=== PATIENT | male | born 1960 | race Caucasian/White ===

== ENCOUNTER 2017-05-27 23:29 | Inpatient (IN) ==
[2017-05-27] MEDS ORDERED: Aspirin 81 MG TAB.CHEW PO ONE (23:50)
[2017-05-27] MEDS ORDERED: Nitroglycerin 0.4 MG TAB.SUBL SL PRN (23:50)
--- NOTE | 2017-05-27 23:52 | Emergency Department Note ---
Disposition Clinical Impression: Tobacco abuse, NSTEMI (non-ST elevated myocardial infarction) Disposition: Admitted As Inpatient Condition: Fair Time of Disposition: 02:36 Chest Pain HPI - General Chief Complaint: ED Chest Pain Stated Complaint: Chest Pain into back Time Seen by Provider: 05/27/17 23:44 Source: patient Mode of arrival: ambulatory Limitations: no limitations Vital Signs Reviewed: Yes Nursing Notes Reviewed: Yes - History of Present Illness HPI Narrative: 56-year-old male with a history of ACS status post stents in 2006 on aspirin and Plavix presents for evaluation of chest pain. Patient notes intermittent chest pain over the past couple days. Initial presentation was on Friday where the patient had tightness in his chest that lasts approximately 1 hour. Patient 's pain was nonexertional. Since then the patient has had intermittent symptoms with more prolonged symptoms today. Noted to be a tightness sensation similar to his prior presentation in 2006. Pain is retrosternal with radiation to the bilateral shoulders and back. Pain is not related to exertion. Noted to be intermittent over the past 2 days. No aggravating or alleviating symptoms. Patient denies any diaphoresis or vomiting but does note "hot flashes ". Denies any dyspnea. No abdominal pain. Severity scale (1-10): 5 - Related Data Allergies Allergy/AdvReac Type Severity Reaction Status Date / Time No Known Allergies Allergy Verified 05/27/17 23:34 All systems ED: reviewed and negative except as stated. Constitutional: Reports: as per HPI. Denies: fever Eyes: Reports: as per HPI ENT ED: Reports: as per HPI Cardiovascular: Reports: as per HPI, chest pain Respiratory: Reports: as per HPI. Denies: cough, dyspnea, sputum production Gastrointestinal: Reports: as per HPI. Denies: abdominal pain, nausea, vomiting Genitourinary: Reports: as per HPI Musculoskeletal: Reports: as per HPI Integumentary: Reports: as per HPI Neurological: Reports: as per HPI Psychiatric: Reports: as per HPI Endocrine: Reports: as per HPI Hematological/Lymphatic: Reports: as per HPI Allergic/Immunologic: Reports: as per HPI Chest Pain PMH - Past Medical History Medical history: Reports: COPD, myocardial infarction - Social History Smoking Status: Current every day smoker Alcohol use: Reports: none Drug use: Reports: none Physical Exam - General Limitations: no limitations General appearance: alert, in no apparent distress - Head Head exam: atraumatic, normocephalic, normal inspection - Eye Eye exam: Present: normal appearance, PERRL, EOMI - ENT ENT exam: normal exam, normal oropharynx, mucous membranes moist - Neck Neck exam: Present: normal inspection, trachea midline - Chest Chest inspection: Present: normal inspection, symmetric chest wall rise - Respiratory Respiratory exam: Present: prolonged expiratory phase. Absent: respiratory distress - Cardiovascular Cardiovascular exam: Present: regular rate, normal rhythm. Absent: systolic murmur - Abdominal Exam Abdominal exam: Present: soft, Non-Tender - Extremities Exam Extremities exam: Present: normal inspection. Absent: pedal edema - Back Exam Back exam: Present: normal inspection. Absent: tenderness - Neurological Exam Neurological exam: Present: alert, oriented X3, CN II-XII intact - Skin Skin exam: Present: warm, dry, intact, normal color Course Course Narrative: Patient seen and examined upon arrival. Patient appears uncomfortable but does not appear in any acute distress. Patient does have EKG changes. Patient will get a repeat EKG as well as troponin basic labs and chest x-ray. Patient be treated symptomatically with aspirin as well as nitroglycerin. Disposition admission. - Reevaluation(s) Reevaluation #1: Repeat EKG showed sinus bradycardia with Q waves in lead 3. No ST elevation. Minimal ST depression in the anterior leads with flattening of T waves in V5 and V6 Time: 00:46 Reevaluation #2: Patient seen and examined. States the pain has improved. Rated 2 out of 10. Repeat EKG shows sinus bradycardia with minimal ST depression in V2 V3 isolated ST elevation of half a millimeter in lead 3. No other acute changes. EKGs were transferred to the frothing machine operator for interpretation. Time: 01:54 Reevaluation #3: Patient seen and examined. Patient continues to report no pain. Patient was instructed to let us know if his pain worsens. Patient was made aware that he does have signs and symptoms consistent of a heart attack. Time: 03:19 - Consultations Consultation #1: Spoke with Dr. Perea, who recommends maximal medical therapy with nitro drip, loading with antiplatelet agents. If the patient continues to have significant chest pain the patient would likely need a cardiac catheter. Time: 01:00 Vital Signs Temperature 98.6 F 05/27/17 23:30 Pulse Rate 59 05/27/17 23:30 Respiratory Rate 20 05/27/17 23:30 Blood Pressure 144/83 05/27/17 23:30 O2 Sat by Pulse Oximetry 100 05/27/17 23:30 Temperature 98.6 F 05/28/17 03:58 Pulse Rate 56 05/28/17 03:58 Respiratory Rate 16 05/28/17 03:58 Blood Pressure 126/87 05/28/17 03:30 O2 Sat by Pulse Oximetry 96 05/28/17 03:58 Oxygen Delivery Oxygen Delivery Room Air Chest Pain - MDM Narrative Medical decision making narrative: 56-year-old gentleman with a history of ACS present for evaluation of chest pain. Patient's pain initially started on Friday. Had an intense episode at that time. Since then patient had intermittent episodes and has not been more prolonged today. Pain does radiate to shoulder blades. Patient did have EKG changes. Serial EKG changes has not resolved into a STEMI. Patient did have an elevated troponin. Discussed with interventional cardiology who reviewed the EKGs as well. Patient was started on a nitro drip as well as loaded with Plavix. Patient was also started on a heparin drip. Patient's pain was controlled in the emergency department. Patient was admitted to hospitals for further care and management. If the patient's symptoms worsen is instructed contact cardiology for likely cath intervention. - Lab Data Lab results reviewed: Yes I reviewed the patient's lab results. Result diagrams: 05/28/17 00:00 05/28/17 00:00 Lab Results 05/28/17 05/28/17 05/28/17 Range/Units 00:00 00:00 00:00 WBC 12.1 H (4.3-11.1) K/mcL RBC 5.10 (4.19-5.50) M/mcL Hgb 15.5 (12.9-16.9) g/dL Hct 46.7 (37.5-50.1) % MCV 91.6 (83.0-100.0) fL MCH 30.4 (28.0-33.3) pg MCHC 33.2 (31.6-35.5) g/dL RDW 12.6 (11.5-14.5) % Plt Count 219 (140-400) K/mcL MPV 9.6 (9.4-12.4) fL Immature Gran % 0.4 (0-4) % Seg Neutrophils % 69.1 % Lymphocytes % 22.2 % Monocytes % 6.8 % Eosinophils % 1.1 % Basophils % 0.4 % Neutrophils # 8.4 (1.6-8.9) K/mcL Lymphocytes # 2.7 (0.6-4.6) K/mcL Monocytes # 0.8 (0.0-1.3) K/mcL Eosinophils # 0.1 (0.0-0.6) K/mcL Basophils # 0.1 (0.0-0.2) K/mcL PT (9.4-12.1) Seconds INR APTT (26.0-36.0) Seconds Sodium 141 (136-145) mEq/L Potassium 3.5 (3.5-5.1) mEq/L Chloride 107 (98-107) mEq/L Carbon Dioxide 31 H (23-29) mEq/L BUN 6 (6-20) mg/dL Creatinine 0.82 (0.70-1.30) mg/dL Est GFR ( Amer) > 60 (> 60) Est GFR (Non-Af Amer) > 60 (> 60) BUN/Creatinine Ratio 7 (6-26) Glucose 103 (70-105) mg/dL Calculated Osmolality 290 (280-300) Calcium 9.4 (8.6-10.3) mg/dL Total Bilirubin 0.5 (0.3-1.0) mg/dL Direct Bilirubin 0.1 (0.0-0.2) mg/dL Indirect Bilirubin 0.4 (0.0-1.2) mg/dL AST 107 H (13-39) Units/L ALT 27 (7-52) Units/L Alkaline Phosphatase 82 (34-104) Units/L Troponin I 9.87 H* (< 0.04) ng/mL B-Natriuretic Peptide (Less than 100) pg/mL Serum Total Protein 6.5 (6.4-8.9) g/dL Albumin 4.3 (3.5-5.7) g/dL Globulin 2.2 L (2.4-3.5) g/dL Albumin/Globulin Ratio 2.0 (1.1-2.2) Lipase 21 (11-82) Units/L 05/28/17 05/28/17 Range/Units 00:00 00:00 WBC (4.3-11.1) K/mcL RBC (4.19-5.50) M/mcL Hgb (12.9-16.9) g/dL Hct (37.5-50.1) % MCV (83.0-100.0) fL MCH (28.0-33.3) pg MCHC (31.6-35.5) g/dL RDW (11.5-14.5) % Plt Count (140-400) K/mcL MPV (9.4-12.4) fL Immature Gran % (0-4) % Seg Neutrophils % % Lymphocytes % % Monocytes % % Eosinophils % % Basophils % % Neutrophils # (1.6-8.9) K/mcL Lymphocytes # (0.6-4.6) K/mcL Monocytes # (0.0-1.3) K/mcL Eosinophils # (0.0-0.6) K/mcL Basophils # (0.0-0.2) K/mcL PT 11.0 (9.4-12.1) Seconds INR 1.0 APTT 29.0 (26.0-36.0) Seconds Sodium (136-145) mEq/L Potassium (3.5-5.1) mEq/L Chloride (98-107) mEq/L Carbon Dioxide (23-29) mEq/L BUN (6-20) mg/dL Creatinine (0.70-1.30) mg/dL Est GFR ( Amer) (> 60) Est GFR (Non-Af Amer) (> 60) BUN/Creatinine Ratio (6-26) Glucose (70-105) mg/dL Calculated Osmolality (280-300) Calcium (8.6-10.3) mg/dL Total Bilirubin (0.3-1.0) mg/dL Direct Bilirubin (0.0-0.2) mg/dL Indirect Bilirubin (0.0-1.2) mg/dL AST (13-39) Units/L ALT (7-52) Units/L Alkaline Phosphatase (34-104) Units/L Troponin I (< 0.04) ng/mL B-Natriuretic Peptide 126 H (Less than 100) pg/mL Serum Total Protein (6.4-8.9) g/dL Albumin (3.5-5.7) g/dL Globulin (2.4-3.5) g/dL Albumin/Globulin Ratio (1.1-2.2) Lipase (11-82) Units/L - Radiology Data Radiology results reviewed: Yes I reviewed the patient's radiology results. Chest X-Ray 05/27/17 23:35 IMPRESSION: No acute abnormality. D/ / Anselmo Jay / Anselmo Jay Interpreting Provider: Anselmo Jay - EKG Data EKG attestation: Yes I reviewed and interpreted this EKG. EKG shows normal: sinus rhythm Rate: normal Rhythm: NSR Cummings/QRS: left axis deviation ST segment elevation in: III ST segment depression in: v2, v4 Q waves: aVR T wave inversions noted in: aVR, v5 (flattening), v6 (flattening) When compared to previous EKG there are: previous EKG unavailable Interpretation: nonspecific ST-T wave changes Heart Score - Score History: Highly Suspicious EKG: Significant ST-Depression Age: 45-65 Risk Factors: Equal/Greater than 3 risk factor or history of atherosclerotic disease Troponin: Greater than 3x normal limit HEART Score Total: 9 Critical Care Time Critical Care Time: Yes Total Critical Care Time: 60 Attestation: Critical care performed: Time is exclusive of separately billable procedures. Time includes: direct patient care, patient reassessment, coordination of patient care, interpretation of data (laboratory data, radiology data, and respiratory data), review of patient's medical records, medical consultation and documentation of patient care. Procedures included in critical care time: Procedures excluded from critical care time: S.B.ASarbjit - S.B.ASarbjit Situation: Demographics Background: Presenting Complaint Assessment: Vital Signs, Course and respsone to treatment, Patient/Family Expectation Recommendation: Barrier(s) to disposition, Recommendation based on pending studies, treatments, or consults S.B.A.RObdulia Report Given to: Dr. Lopez Blackburn Repor Time: 02:36 Attestation Statement - Attestation Attestation: I, Aravind Guaman MD, personally evaluated this patient and discussed their management with the resident physician. I reviewed the resident's note and agree with the documented findings, medical decision making, and plan of care. 56-year-old male presents to the emergency department with a complaint of chest pain. Patient states the pain started Friday with an episode of severe pain in his back between his shoulder blades and in the substernal area of his chest. The pain lasted about an hour. He did take some Zantac and the pain seemed to get better and finally resolved. He had another episode of similar pain but not as severe on Friday evening. This again resolved spontaneously and he states that all day Friday he just did not feel well and felt weak and fatigued that did not actually have any pain in his chest or back. Today on Friday morning when he awoke he states the pain returned. His only been mild but has persisted all day and has not gone away. He describes it as a tightness in the substernal area with discomfort in his upper back. No radiation down the arms. No shortness of breath or diaphoresis. Some mild nausea. No vomiting. He has had decreased appetite. No cough or fever. Patient does have a history of coronary stents in the past. On examination patient is a well-developed well-nourished well-appearing male in no acute distress. He is alert and oriented 3. There is no cyanosis or diaphoresis. Chest is nontender to palpation. Breath sounds are clear and equal bilaterally. Heart regular rate and rhythm. Abdomen soft and nontender with normal bowel sounds. EKG shows some mild inferior ST elevations but does not meet STEMI criteria. He also has some mild anterior ST segment depressions and lateral T-wave flattening. A repeat EKG later shows the same changes but the actually appear slightly improved. Chest x-ray negative. Labs reviewed. Troponin was 9.87. Dr. Lopez discussed the patient with the frothing machine operator, Dr. Cami Perea, and she reviewed the EKGs. She recommended a heparin drip and nitroglycerin and medical management for a non-STEMI at this point. Patient was placed on heparin infusion and nitroglycerin infusion. He received aspirin and Plavix. After treatment he stated the pain was mostly gone but was still just there. The hospitalist, Dr. Marroquin, was consulted and accepted admission of the patient.
[2017-05-28 00:15] LABS: Basophils # 0.1 K/mcL (0.0-0.2); Basophils % 0.4 %; Eosinophils # 0.1 K/mcL (0.0-0.6); Eosinophils % 1.1 %; Hematocrit 46.7 % (37.5-50.1); Hemoglobin 15.5 g/dL (12.9-16.9); Immature Granulocytes % 0.4 % (0-4); Lymphocytes # 2.7 K/mcL (0.6-4.6); Lymphocytes % 22.2 %; Mean Corpuscular HGB Conc 33.2 g/dL (31.6-35.5); Mean Corpuscular Hemoglobin 30.4 pg (28.0-33.3); Mean Corpuscular Volume 91.6 fL (83.0-100.0); Mean Platelet Volume 9.6 fL (9.4-12.4); Monocytes # 0.8 K/mcL (0.0-1.3); Monocytes % 6.8 %; Neutrophils # 8.4 K/mcL (1.6-8.9); Platelet Count 219 K/mcL (140-400); Red Cell Distribution Width 12.6 % (11.5-14.5); Segmented Neutrophils % 69.1 %
[2017-05-28 00:35] LABS: Alanine Aminotransferase 27 Units/L (7-52); Albumin 4.3 g/dL (3.5-5.7); Alkaline Phosphatase 82 Units/L (34-104); Aspartate Amino Transferase 107 Units/L (13-39); BUN/Creatinine Ratio 7 (6-26); Bilirubin,Direct 0.1 mg/dL (0.0-0.2); Bilirubin,Indirect 0.4 mg/dL (0.0-1.2); Bilirubin,Total 0.5 mg/dL (0.3-1.0); Blood Urea Nitrogen 6 mg/dL (6-20); Calcium 9.4 mg/dL (8.6-10.3); Carbon Dioxide 31 mEq/L (23-29); Chloride 107 mEq/L (98-107); Globulin 2.2 g/dL (2.4-3.5); Glucose 103 mg/dL (70-105); Lipase 21 Units/L (11-82); Osmolality,Calculated 290 (280-300); Potassium 3.5 mEq/L (3.5-5.1); Sodium 141 mEq/L (136-145); Total Protein 6.5 g/dL (6.4-8.9); eGFR For African Americans > 60 (> 60); eGFR For Non-African Americans > 60 (> 60)
[2017-05-28] MEDS ORDERED: *HR* Heparin 5,000 UNIT/ML VIAL IVP ONE (00:41)
[2017-05-28] MEDS ORDERED: *HR* Heparin 5,000 UNIT/ML VIAL IVP PRN (00:41)
[2017-05-28] MEDS ORDERED: Heparin 25,000 UNIT/500 ML D5W 25,000 UNIT/500 ML BAG IVC SCH (00:45)
[2017-05-28] MEDS ORDERED: *HR* Morphine 2 MG/ML SYRINGE IVP ONE (00:45)
[2017-05-28] MEDS ORDERED: Ondansetron 4 MG/2 ML VIAL IVP ONE (00:45)
[2017-05-28] MEDS ORDERED: 0.9 % Sodium Chloride 1,000 ML IVC ONE (00:59)
[2017-05-28] MEDS: Nitroglycerin 25 MG/250 ML INFUS..BTL IVC SCH (01:26)
[2017-05-28] MEDS ORDERED: 0.9 % Sodium Chloride 1,000 ML ONE ×3 (03:48→10:05)
[2017-05-28] MEDS ORDERED: Acetaminophen 325 MG TABLET PO PRN (05:46)
[2017-05-28] MEDS ORDERED: Naloxone 0.4 MG/ML INJ IVP PRN (05:46)
[2017-05-28] MEDS ORDERED: Ondansetron 4 MG/2 ML VIAL IVP PRN (05:46)
[2017-05-28] MEDS ORDERED: *HR* Morphine 2 MG/ML SYRINGE IVP PRN ×2 (05:49)
[2017-05-28] MEDS ORDERED: Ipratropium/Albuterol Neb 3 ML IH PRN (05:49)
--- NOTE | 2017-05-28 05:58 | Internal Med History&Physical ---
Date of Encounter: 05/28/17 Time of Encounter: 05:54 Assessment and Plan (1) NSTEMI (non-ST elevated myocardial infarction) Current visit: Yes Status: Acute Non-STEMI Continue heparin drip, no beta blockers due to bradycardia and hypotension, may discontinue nitroglycerin in if blood pressure drops further Continue aspirin, cardiology consult, Lipitor, check lipid dry transfer worker with telemetry, follow troponins Cardiology consult Nothing by mouth for possible cardiac catheterization Limited echocardiogram Protonix IV for GI prophylaxis and heparin drip for DVT prophylaxis. Patient will be admitted as inpatient, expected to stay [facility] midnights. Full code. Time spent on this admission 40 minutes. (2) Leukocytosis Current visit: Yes Status: Acute Qualifiers: Leukocytosis type: unspecified Qualified Code(s): D72.829 - Elevated white blood cell count, unspecified (3) Hypotension Current visit: Yes Status: Acute due to nitroglycerin Qualifiers: Hypotension type: other hypotension type Qualified Code(s): I95.89 - Other hypotension (4) Tobacco abuse Current visit: Yes Status: Acute Smoking cessation counseling, nicotine patch (5) Sinus bradycardia Current visit: Yes Status: Acute Internal Medicine - H&P: HPI Chief complaint: Chest pain Admitted From: Emergency Dept History of present illness: Mr. Cloud is a 56 year old male with past medical history of CAD status post stents, COPD not oxygen dependent, tobacco use, who came to the emergency room complaining of 2 days of intermittent chest pain that started Friday. Earlier yesterday he started complaining of chest tightness midsternal 9 out of 10 in intensity radiating to the back and shoulders at 9 AM. EKG showed sinus bradycardia with Q waves and ST elevation only in lead 3, ST depressions in the anterior leads with flattening of T waves in the lateral leads. The patient is still complaining of chest tightness 3 out of 10 in intensity even though he is on nitroglycerin drip. Heparin drip was started after consulting with cardiology. White blood cell count is 12.1 troponin is 9.87 BNP is 126. Patient has been experiencing hot flashes. Heart rate is 49 blood pressure was 87/54. Denies any other complaints. Takes aspirin but no Plavix Past Med Surg Social Fam HX - Past Medical History Medical history: COPD (Not oxygen dependent, emphysema), coronary artery disease (With history of stent), myocardial infarction, other (Tobacco use, left upper lobe calcified granuloma) - Past Surgical History Surgical History: no surgical history (Other than cardiac catheterization) - Social History Smoking Status: Current every day smoker Packs per day: One pack per day Smokeless Tobacco Status: No Alcohol use: none Drug use: none - Additional Family History Additional family history: Father and mother with a myocardial infarction in their 60s, father with diabetes Internal Medicine - H&P: Meds 3 Allergy/AdvReac Type Severity Reaction Status Date / Time No Known Allergies Allergy Verified 05/27/17 23:34 All Systems PM: A 10-system review of systems was performed and is negative for pertinent findings except as documented above in the HPI. Review of systems: Chest tightness, mild shortness of breath. Other systems out of the 10 reviewed were negative - Constitutional Vitals: Temp Pulse Resp BP Pulse Ox 98.6 F 56 16 126/87 96 05/28/17 03:58 05/28/17 03:58 05/28/17 03:58 05/28/17 03:30 05/28/17 03:58 General appearance: Present: A&O X 3 - Head Head exam: Present: atraumatic, normocephalic - Eye Eye exam: Present: PERRL, conjuntiva pink, sclera anicteric Pupils: Present: PERRL - Neck Neck exam general surgery: Present: supple, trachea midline. Absent: lymphadenopathy - Respiratory Respiratory exam: Present: CTAB. Absent: accessory muscle use, rales, rhonchi, wheezes - Cardiovascular Cardiovascular exam: Present: RRR, +S1, +S2. Absent: diastolic murmur, gallop, rubs, systolic murmur - GI/Abdominal GI/Abdominal exam: Present: normal bowel sounds, soft, no peritoneal signs. Absent: distended, tenderness - Extremities Exam Extremities exam: Present: warm, radial pulses palpable and symmetrical. Absent : calf tenderness, cyanotic, pedal edema - Neurological Exam Neurological exam: Present: CN II-XII intact, oriented X3, no focal deficits. Absent: pronater drift, facial droop, speech deficit - Skin Skin exam: Present: dry, intact Internal Med - H&P Results - Labs CBC & Chem 7: 05/28/17 00:00 05/28/17 00:00
[2017-05-28] MEDS ORDERED: 0.9 % Sodium Chloride 1,000 ML IVC SCH (06:00)
[2017-05-28 06:42] LABS: Chol/HDL Ratio 3.4 (0-4.9)
[2017-05-28] MEDS: Pantoprazole 40 MG VIAL IVP SCH (07:54)
[2017-05-28] MEDS: Nicotine 21 MG PATCH.TD24 TD SCH (07:55)
--- NOTE | 2017-05-28 08:27 | Cardiology Consult Note ---
Date of Encounter: 05/28/17 Time of Encounter: 07:50 Assessment and Plan (1) NSTEMI (non-ST elevated myocardial infarction) Current Visit: Yes Status: Acute Late presenting AMI--symptoms since Friday evening. Peak troponin thus far 16.35. Reports CP 2-3/10. Inferior ST/T wave changes on ECG. ASA/plavix load in ED. Started on IV heparin and NTG gtt. Continue statin. No BB due to bradycardia. Recommend LHC with possible PCI; alternatives, risks, and benefits discussed. He is agreeable to proceed. Reviewed patient/ECG with Dr. Smith. Check echocardiogram. Cardiac rehab consult. Further recommendations to follow. (2) Sinus bradycardia Current Visit: Yes Status: Acute HR 40-45 SB. No betablocker. (3) Tobacco abuse Current Visit: Yes Status: Acute Smoking cessation counseling. Discussion w patient/family: The assessment and plan as outlined above was discussed with the patient and/or family members who expressed understanding and agreement. All questions were answered. Thank you for involving us in the care of your patient. Please call with any questions. The patient was discussed and reviewed with Dr. Tolentino; changes to be made accordingly. History of Present Illness Consult date: 05/28/17 Requesting physician: Dale Lopez Consult reason: NSTEMI Chief complaint: Chest pain History of present illness: Mr. Cloud is a 56 year old male with PMHx significant for CAD (PCI-2006), HTN, STANISLAV, tobacco use, and COPD who presented to the ED with complaints of back pain with raditation to center of chest since Friday evening. Patient reports symptoms have waxed and waned for the past several days, typically lasting an hour. Discomfort described as "burning/indigestion." Patient thought was related to GERD. Reports chest discomfort recurred Friday morning and did not subside which prompted ED evaluation last night. Discomfort is similar to prior [place] presentation in 2006. Associated symptoms include fatigue for the past several months. Prior CV testing: February 2017 TTE: EF 60-65%, HR 45-50 SB, normal wall motion. Past Med Surg Social Fam HX - Past Medical History Attestation: Yes The following information was validated with the patient. Source: patient Medical history: COPD (Not oxygen dependent, emphysema), coronary artery disease (With history of stent), myocardial infarction, other (Tobacco use, left upper lobe calcified granuloma) - Past Surgical History Surgical History: angioplasty/stent - Social History Smoking Status: Current every day smoker Packs per day: One pack per day Smokeless Tobacco Status: No Alcohol use: none Drug use: none Medications and Allergies Aspirin Enteric Coated [Aspirin EC] 81 mg PO DAILY 05/28/17 [History] Cyanocobalamin (Vitamin B-12) [Vitamin B12] 1,000 mcg PO DAILY 05/28/17 [History ] 3 Allergy/AdvReac Type Severity Reaction Status Date / Time No Known Allergies Allergy Verified 05/27/17 23:34 All Systems Review: A 10-system review of systems was performed and is negative for pertinent findings except as documented above in the HPI. - Cardiovascular Cardiovascular: as per HPI Physical Examination Vital Signs, Last 4 Hours Temp Pulse Resp BP Pulse Ox 05/28/17 07:15 98.3 F 47 16 92/46 95 General: Conversant, Other (tearful) HEENT: Atraumatic, Normocephaly Cardiac: Normal S1 and S2, Other (bradycardiac) Neuro: Alert and responsive Abdomen: Soft Skin: No rashes noted on visualized skin Musculoskeletal: No Chest Wall Tenderness Extremities: No Edema, Normal Pulses Results 05/28/17 00:00 05/28/17 00:00 Lab Results 05/28/17 06:20 Troponin I 16.35 H* Active Medications Acetaminophen (Tylenol) 650 mg PO Q6HR PRN PRN Reason: Mild Pain (1-3) Stop: 11/27/17 05:47 Albuterol/Ipratropium (Duoneb) 3 ml IH [id number] PRN; Protocol PRN Reason: Shortness Of Breath/Wheezing Stop: 11/27/17 05:50 Aspirin (Aspirin Ec) 325 mg PO DAILY JERRY Stop: 11/27/17 09:01 Last Admin: 05/28/17 07:54 Dose: 325 mg Atorvastatin Calcium (Lipitor) 80 mg PO DAILY JERRY Stop: 11/27/17 06:01 Heparin Sodium (Porcine) (Heparin) 4,000 unit IVP Q6HR PRN PRN Reason: SEE COMMENTS Stop: 11/27/17 00:42 Heparin Sodium/Dextrose (Heparin 25,000 Unit/500 Ml D5w) 25,000 unit in 500 mls @ 20.04 mls/hr IVC .Q24H JERRY; 9.4 UNIT/KG/HR PRN Reason: Protocol Stop: 11/27/17 00:46 Last Admin: 05/28/17 01:07 Dose: 9.4 unit/kg/hr, 20.04 mls/hr Nitroglycerin (Nitroglycerin Premix 25 Mg/250 Ml) 25 mg in 250 mls @ 3 mls/hr IVC .Q24H JERRY; 5 MCG/MIN PRN Reason: Protocol Stop: 11/27/17 01:01 Last Admin: 05/28/17 01:26 Dose: 5 mcg/min, 3 mls/hr Sodium Chloride (0.9 % Sodium Chloride) 1,000 mls @ 100 mls/hr IVC .Q10H JERRY Stop: 05/29/17 01:59 Last Admin: 05/28/17 07:55 Dose: 100 mls/hr Morphine Sulfate (Morphine Sulfate) 2 mg IVP Q3H PRN PRN Reason: moderate pain Stop: 11/27/17 05:50 Morphine Sulfate (Morphine Sulfate) 4 mg IVP Q3H PRN PRN Reason: severe pain Stop: 11/27/17 05:50 Naloxone HCl (Narcan) 0.4 mg IVP Q2MIN PRN PRN Reason: Opioid Reversal Stop: 11/27/17 05:47 Nicotine (Nicoderm) 21 mg TD DAILY JERRY PRN Reason: Protocol Stop: 11/27/17 09:01 Last Admin: 05/28/17 07:55 Dose: Not Given Nitroglycerin (Nitroglycerin) 0.4 mg SL Q5MIN PRN PRN Reason: Chest Pain Stop: 11/26/17 23:51 Last Admin: 05/28/17 00:14 Dose: 0.4 mg Ondansetron HCl (Zofran) 4 mg IVP Q8HR PRN PRN Reason: Nausea And Vomiting Stop: 11/27/17 05:47 Pantoprazole Sodium (Protonix) 40 mg IVP 0630 JERRY Stop: 11/27/17 06:31 Last Admin: 05/28/17 07:54 Dose: 40 mg - Imaging and Cardiology Echo: pending, report reviewed Cardiac cath: pending - EKG Interpretation EKG results cardiology: personally reviewed Consult Discharge Plan - Plan Referrals: Gabriella Carrero DO [Primary Care Provider] - Trang Osborne, CUPOLA TENDER [Family Provider] -
[2017-05-28] MEDS ORDERED: Heparin 1,000 UNITS/500 mL 500 ML ONE ×2 (08:53→10:06)
--- NOTE | 2017-05-28 08:54 | Pre-Sedation Evaluation ---
Pre-sedation evaluation - Pre-sedation checklist Date of procedure: 05/28/17 Recent Vitals: Last Vital Signs Temp 98.3 F 05/28/17 07:15 Pulse 47 05/28/17 07:15 Resp 16 05/28/17 07:15 BP 92/46 05/28/17 07:15 Pulse Ox 95 05/28/17 07:15 H&P (including ROS) documented in medical record: Yes Previous reaction to sedatives/anesthetics: No Dietary Status: No solid food in preceding 4 hrs and no liquid in preceding 2 hrs Airway Assessment: Patient can open mouth completely, TMJ function normal Dentition: No loose teeth or bridges Possible difficult airway: No ASA Classification *see protocol: CLASS III-Severe systemic disease Plan of Care: Pt appropriate candidate for procedure/moderate/conscious sedation , Risks/benefits of procedure/sedation discussed w/ patient/family, If not NPO; Risk of intake outweiged by necessity to perform procedure
[2017-05-28] MEDS ORDERED: *HR* Midazolam HCl 2 MG/2 ML VIAL ONE ×2 (08:55→09:01)
[2017-05-28] MEDS ORDERED: Aspirin Enteric Coated 325 MG Tablet PO SCH (09:00)
[2017-05-28] MEDS ORDERED: *HR* Heparin 10,000 UNIT/10 ML VIAL ONE (10:05)
[2017-05-28] MEDS ORDERED: Nitroglycerin 1,000 MCG/10 ML VIAL IV ONE (10:05)
[2017-05-28] MEDS ORDERED: *HR* Atropine Sulfate 1 MG/10 ML SYRINGE ONE (10:05)
[2017-05-28] MEDS: Aspirin Enteric Coated 81 MG Tablet PO SCH (13:25)
[2017-05-28] MEDS: 0.9 % Sodium Chloride 1,000 ML IVC SCH (13:25)
--- NOTE | 2017-05-28 13:25 | Invasive Diagnostic Lab Proc ---
Name: Anselmo Cloud Date of Study: 05/28/2017 Date: 1960 Ht: 72.0in Medical Record#: [id number] Age: 56 Wt: 235.89lb Gender: Male BSA: 2.29 Order #: [id number] BMI: 31.95 Physicians Procedure Physician: Wilton Smith DO Referring MD: Referring MD: Staff Name Position [facility] 08:51 AM Arcenio Cheri RT (R) 08:51 AM 08:51 AM June Bourgeois RT Scrub 08:52 AM Cate Chaparro RN Nurse 09:52 AM Indications Indication Non-Stemi Procedures Performed Procedure L HRT ARTERY/VENTRICLE ANGIO PRQ CARD VICTORINO STENT W/ANGIO 1 VSL CARDIOPULMONARY RESUSCITATION Pre-Procedure Checklist Informed consent is complete signed and on chart. H&P is on chart. ID band is on and ID verified with patient. Patient NPO for procedure The procedure was described for the patient and questions were answered. Blood Pressure: 92/46 ECG is on chart. Rhythm: Sinus Bradycardia Plan of Care Patient will tolerate the procedure without complications. Adequate level of comfort will be maintained. Hemodynamics will remain stable Patient will recover from procedure without complications. Respiratory function will be maintained. Cardiac rhythm will remain stable. Patient temperature will be maintained. Patient and/or family have verbalized understanding of the procedure. Patient Education Chief Complaint/Reason for Test: Cardiac Cath Developmental Category: Adult (18-64 years) Developmentally Appropriate for Age: Yes Learning Barriers: None Education Needs: Procedure Education Method: Verbal Information Taught: Cardiac Cath Educational Evaluation: Able to repeat information Intravenous Access Time IV Size Location DC'd Fluid/Drip Rate Units RN 08:28 AM 18g 1 14" Patent On Arrival Rt Antecubital 08:29 AM 18g 1 14" Patent On Arrival Rt Arm Allergies No Known Allergies Vital Signs Time BP (mmHg) HR (bpm) O2 Sat. RR (bpm) LOC 08:47 AM / % 5 = Fully awake and oriented or at pre-proc level 08:52 AM / % 5 = Fully awake and oriented or at pre-proc level 08:52 AM / % 4 = Oriented but drowsy 09:07 AM / % 4 = Oriented but drowsy 09:23 AM / % 4 = Oriented but drowsy 08:52 AM 118 / 76 55 98 % 32 08:56 AM 123 / 80 73 99 % 19 09:01 AM 114 / 65 50 98 % 16 09:06 AM 106 / 59 51 96 % 23 09:11 AM 108 / 61 47 96 % 23 09:16 AM 116 / 68 72 95 % 17 09:22 AM 171 / 92 45 93 % 29 09:27 AM 153 / 96 67 91 % 16 09:32 AM 133 / 78 70 95 % 16 09:37 AM 137 / 86 75 95 % 18 09:42 AM 137 / 89 81 98 % 22 09:47 AM 137 / 98 78 99 % 15 10:09 AM 116 / 74 54 99 % 23 5 = Fully awake and oriented or at pre-proc level 10:15 AM 112 / 74 52 98 % 18 5 = Fully awake and oriented or at pre-proc level 10:33 AM 103 / 75 69 98 % 18 5 = Fully awake and oriented or at pre-proc level 10:45 AM 99 / 63 50 99 % 20 5 = Fully awake and oriented or at pre-proc level 11:00 AM 110 / 69 52 97 % 16 5 = Fully awake and oriented or at pre-proc level 11:30 AM 95 / 65 48 97 % 20 5 = Fully awake and oriented or at pre-proc level 12:00 PM 95 / 66 50 96 % 18 5 = Fully awake and oriented or at pre-proc level Procedural Medications Time Medication Dose Units Method Given By 08:47 AM Oxygen 2 L/min nasal cannula Martha Mims RN 08:59 AM Versed 2 mg Intravenous Martha Mims RN 09:01 AM Versed 1 mg Intravenous Martha Mims RN 09:01 AM Lidocaine 2% 10 ml Subcutaneous Wilton Smith DO 09:09 AM 0.9NaCl 500 ml Intravenous Martha Mims RN 09:13 AM Heparin 3000 units Intravenous Martha Mims RN 09:18 AM 0.9NaCl 500 ml Intravenous Martha Mims RN 09:23 AM Atropine 0.5 mg Intravenous Martha Mims RN 09:30 AM Nitroglycerin 200 mcg Intracoronary Wilton Smith DO ASA Classification: CLASS III- Severe systemic disease (i.e. prior AMI, diabetes with vascular complications, morbid obesity) Bashir Score Preprocedure Postprocedure Activity 2- Moves 4 extremities sustained head lift Activity 2- Moves 4 extremities sustained head lift Circulation 2- SBP +/= 20 points of pre-anesthetic level Circulation 2- SBP +/= 20 points of pre-anesthetic level Consciousness 2- Awake and alert oriented x 3 Consciousness 2- Awake and alert oriented x 3 O2 Saturation 2- Able to maintain O2 satruation of 92% on room air O2 Saturation 2- Able to maintain O2 satruation of 92% on room air Respiratory 2- Able to deep breathe and cough well Respiratory 2- Able to deep breathe and cough well Total Score 10 Total Score 10 Contrast Agent: Isovue Diagnostic Contrast: 170 ml Total Contrast: 170 ml Fluoro Dose: 1556 mGy Activated Clotting Time Time Seconds to Clot 09:13 AM 156 09:28 AM Procedure Log Time Note Enter By 08:36 AM CathStat 08:46 AM Pt arrived to labor relations consultant 2 at 08:46 [email or web address] 08:47 AM Patient charges- Angio tray pack, Navilyst 3mm J, Pulse Oximetry and ACIST tubing and transducer [email or web address] 08:47 AM Physician arrived 08:47 [email or web address] 08:47 AM Tavon and yesenia completed [email or web address] 08:47 AM Sign in performed according to hospital policy. [email or web address] 08:47 AM Procedure start 08:47 [email or web address] 08:47 AM Time: 08:47 Oxygen on at 2 L/min per nasal cannula by Martha Mims RN [email or web address] 08:47 AM Time: 08:47 Patient comfortable and pain free: Yes pt states chest pain is a 0 out of 10 at this time [email or web address] 08:47 AM Time: 08:47LOC: 5 = Fully awake and oriented or at pre-proc level [email or web address] 08:51 AM Vitals capture started with the following parameters, Patient=Adult, Interval=5 min, Initial Gwydluqa=898 mmHg, Deflation Rate=5 mmHg, Cuff placed on Left Arm 08:51 AM Rosa Douglas RN Position: Monitor Time in: 08:51 [facility] 08:51 AM Cheri Rg RT (R) Position: [facility]: [facility] 08:52 AM HR=55 bpm, WRFM=869/76 mmhg, SpO2=98.0 %, Resp=32 B/min, Comment=SR 08:52 AM June Bourgeois RT Position: Scrub [facility]: 08[facility] 08:52 AM Patient charges- Angio tray pack, Navilyst 3mm J, Pulse Oximetry and ACIST tubing and transducer [facility] 08:52 AM Case Delayed No mm 08:52 AM Case Start 08:52 AM Time: 08:52 Patient comfortable and pain free: Yes [facility] 08:52 AM Time: 08:52LOC: 5 = Fully awake and oriented or at pre-proc level 08:56 AM Hair removed from procedure site in procedure lab using clippers. Bilateral groin prepped with Chloraprep by Arcenio, Cheri RT (R), safety strap applied then patient was draped. Skin intact. mm 08:56 AM HR=73 bpm, ZXOO=385/80 mmhg, SpO2=99.0 %, Resp=19 B/min, Comment=SR 08:57 AM Recorded ECG: HR=53 Condition=Condition 1 08:57 AM ASA Class CLASS III- Severe systemic disease (i.e. prior AMI, diabetes with vascular complications, morbid obesity) [facility] 08:59 AM Time: 08:59 Versed 2 mg Intravenous Given by Martha Mims RN [facility] 09[facility] AM Clinical Presentation: Non-STEMI [facility] 09:00 AM Recorded ECG: HR=62 Condition=Condition 1 09:01 AM Time out performed according to hospital policy 09:01 AM Pressure channel 1 zeroed. 09:01 AM Time: 09:01 Versed 1 mg Intravenous Given by Martha Mims RN claire 09:01 AM Time: 09:01 10 ml Lidocaine 2% to right groin Subcutaneous Given by Wilton Smith DO [facility] 09:01 AM HR=50 bpm, ISZB=282/65 mmhg, SpO2=98.0 %, Resp=16 B/min, Comment=SB 09:02 AM Pressure channel 1 zeroed. 09:02 AM Micro-Introducer Kit utilized for sheath placement 09:03 AM Access obtained by percutaneous puncture. 6Fr 10cm Terumo Thrall sheath placed in right Femoral artery. [id number] [facility] 09:03 AM 6Fr FR 4 catheter inserted over the wire C 09:03 AM 0.035 145cm Navilyst 3mmJ wire [id number] oumm 09:04 AM Catheter selectively placed in left ventricle [email or web address] 09:04 AM Bolus angiogram of left Ventricle complete: hand injection. 09:06 AM Recorded Pressure: LV, HR=48, Condition=Condition 1 (Left Ventricle) LV 81/-8/5 09:06 AM Recorded Pressure: LV, Ao, HR=48, Condition=Condition 1 (Left Ventricle) LV 92/5/6, (Aorta) Ao 78/40/57 09:06 AM RCA angiography performed in multiple views. 09:06 AM HR=51 bpm, BRHR=615/59 mmhg, SpO2=96.0 %, Resp=23 B/min 09:07 AM Catheter removed 09:07 AM 6Fr FL 4 catheter inserted over the wire DNC 09:07 AM LCA angiography performed in multiple views. oumm 09:07 AM Recorded Pressure: Ao, HR=51, Condition=Condition 1 (Aorta) Ao 80/39/56 09:07 AM Time: 08:52 Patient comfortable and pain free: Yes 09:07 AM Time: 08:52LOC: 4 = Oriented but drowsy tsoumm 09:09 AM Time: 09:09 0.9NaCl 500 ml bolus Intravenous Given by Martha Mims RN 09:09 AM Catheter removed 09:10 AM Inflation device was opened. tsoumm 09:11 AM 6Fr JR 4 Spivey Bright-Tip guide catheter was used to cannulate the PCI vessel successfully. reused? No oumm 09:11 AM .014 ChoICE PT Extra Support 300cm guide wire across target lesion- successful. reused? No tsoummers 09:11 AM HR=47 bpm, ZKCG=480/61 mmhg, SpO2=96.0 %, Resp=23 B/min, Comment=SB 09:12 AM Recorded Pressure: Ao, HR=54, Condition=Condition 1 (Aorta) Ao 87/48/65 09:13 AM Lesion found in Distal RCA. Pre Stenosis: 100 Pre PATSY Flow: 0: No Flow/No perfusion [email or web address] 09:13 AM Lesion found in Mid LAD. Pre Stenosis: 40 Pre PATSY Flow: [email or web address] 09:13 AM Mid/Distal Left Anterior Descending Coronary Artery and diagonal branches with 40% stenosis. mm 09:13 AM At 09:13 the ACT was 156 seconds. 09:13 AM Time: 09:13 Heparin 3000 units Intravenous Given by Martha Mims RN claire 09:14 AM Right Coronary, Right Posterior Descending Arteries with Right Posterolateral and Acute Marginal branches with 100 % stenosis. mm 09:14 AM Recorded Pressure: Ao, HR=50, Condition=Condition 1 (Aorta) Ao 87/47/63 09:15 AM 2.25mm x 20mm Synergy drug-eluting stent across target lesion- successful Lot #[id number] [facility] 09:16 AM HR=72 bpm, DIGO=217/68 mmhg, SpO2=95.0 %, Resp=17 B/min, Comment=SR 09:17 AM Stent deployed @ 10 saima for 12 seconds nilesh 09:18 AM Time: 09:18 0.9NaCl 500 ml bolus Intravenous Given by Martha Mims RN maggienilesh 09:19 AM Stent balloon reinflated @ 18 saima for 22 seconds [email or web address] 09:19 AM Stent balloon reinflated @ 16 saima for 14 seconds [facility] 09[facility]19 AM Stent delivery system removed intact. 09:20 AM Time: 09:30 Nitroglycerin 200 mcg Intracoronary Given by Wilton Smith DO 09:22 AM HR=45 bpm, HLTS=371/92 mmhg, SpO2=93.0 %, Resp=29 B/min, Comment=SB 09:23 AM Time: 09:07LOC: 4 = Oriented but drowsy 09:23 AM Time: 09:07 Patient comfortable and pain free: Yes 09:23 AM Time: 09:23 Atropine 0.5 mg Intravenous Given by Martha Mims RN maggienilesh 09:26 AM 2.25mm x 20mm Synergy drug-eluting stent across target lesion- successful Lot #[id number] [facility] 09:26 AM Stent deployed @ 16 saima for 10 seconds tsoumm 09:26 AM Stent balloon reinflated @ 16 saima for 10 seconds [facility] 09:26 AM Stent delivery system removed intact. [email or web address] 09:27 AM HR=67 bpm, WPJT=325/96 mmhg, SpO2=91.0 %, Resp=16 B/min, Comment=SR 09:28 AM 3.5mm x 20mm Synergy drug-eluting stent across target lesion- successful Lot #[id number] tsoummers 09:28 AM At 09:28 the ACT was >400 seconds. [email or web address] 09:29 AM Pt rhythm to VF, compressions initiated per Dr. Smith. Shock delivered at 300J. tsoummers 09:29 AM Stent deployed @ 16 saima for 12 seconds tsoummers 09:29 AM Stent delivery system removed intact. tsoummers 09:31 AM Recorded Pressure: Ao, HR=83, Condition=Condition 1 (Aorta) Ao 95/56/76 09:32 AM HR=70 bpm, YWJM=770/78 mmhg, SpO2=95.0 %, Resp=16 B/min, Comment=SR 09:33 AM 3.0mm x 20mm Synergy drug-eluting stent across target lesion- successful Lot #[id number] tsoummers 09:34 AM Stent deployed @ 16 saima for 10 seconds tsoummers 09:35 AM Stent delivery system removed intact. tsoummers 09:35 AM 3.0 mm x 15mm NC Emerge balloon across target lesion- successful. reused? No tsoummers 09:37 AM Balloon inflated @ 16 saima for 10 seconds tsoummers 09:37 AM HR=75 bpm, YXEN=293/86 mmhg, SpO2=95.0 %, Resp=18 B/min, Comment=SR 09:37 AM Balloon inflated @ 16 saima for 12 seconds tsoummers 09:38 AM Time: 09:23 Patient comfortable and pain free: Yes tsoummers 09:38 AM Time: 09:23LOC: 4 = Oriented but drowsy tsoummers 09:38 AM Balloon inflated @ 16 saima for 10 seconds tsoummers 09:38 AM Balloon inflated @ 18 saima for 12 seconds tsoummers 09:39 AM Balloon inflated @ 18 saima for 10 seconds tsoummers 09:39 AM Balloon catheter removed intact. tsoummers 09:39 AM Recorded Pressure: Ao, HR=80, Condition=Condition 1 (Aorta) Ao 126/75/98 09:40 AM Pt reports 0/10 chest pain. [email or web address] 09:42 AM HR=81 bpm, TPRT=855/89 mmhg, SpO2=98.0 %, Resp=22 B/min, Comment=SR 09:42 AM Guide wire removed intact. tsoumm 09:42 AM Guide catheter removed intact. tsoummers 09:42 AM Procedure completed at 09:42 tsoummers 09:43 AM Sign out completed: Radiation Dose 1556.37 mGy Fluoro Time: 10.6 Isovue 370 - 200ml contrast 170 ml given by Wilton Smith DO. Complications: NoneCardiac Rehab Consult needed: YesConfirmed administered medications: Yes oummers 09:43 AM Isovue 370 - 200ml,1 Bottle(s) used. tsoummers 09:44 AM Arterial sheath pulled, Mynx closure device used and was Successful [id number] S/N. tsoummers 09:46 AM Estimated Blood Loss: less than 20cc tsoummers 09:46 AM Post ECG NSR tsoummers 09:46 AM Post Blood Pressure 137/89 tsoummers 09:47 AM HR=78 bpm, QMHL=549/98 mmhg, SpO2=99.0 %, Resp=15 B/min, Comment=SR 09:47 AM Information taught Cardiac Cath, PCI, and Mynx tsoummers 09:47 AM Education needs Procedure, Plan of Care, and Responsibilities of Patient in Care tsoummers 09:47 AM Learning barriers :None tsoummers 09:47 AM Education Methods Verbal tsoummers 09:47 AM Education evaluation Able to repeat information tsoummers 09:47 AM Site status Oozing - Rt Groin as reported by June Bourgeois RT at 09:47. Holding additional pressure at this time. tsoummers 09:47 AM Plavix, Effient or Brilinta given No, 300 Plavix given MU[place]ER tsoummers 09:48 AM Delay to floor Bed availability tsoummers 09:48 AM Family placed in consult room. tsoummers 09:48 AM Complications: None tsoummers 09:48 AM Fluoro Time: 10.6 tsoummers 09:48 AM Isovue 370 - 200ml contrast 170 ml given by Wilton Smith DO. tsoummers 09:48 AM Radiation Dose 1556.37 mGy tsoummers 09:50 AM Coronary Dominance: right tsoummers 09:50 AM Lesion found in Proximal RCA. Pre Stenosis: 60 Pre PATSY Flow: 3: Complete and Brisk Flow/Perfusion tsoummers 09:51 AM Lesion found in Mid RCA. Pre Stenosis: 70 Pre PATSY Flow: 3: Complete and Brisk Flow/Perfusion tsoummers 09:52 AM Cate Chaparro RN Position: Nurse Time in: 09:52 tsmmers 09:59 AM Site status No bleeding/hematoma - Rt Groin as reported by June Bourgeois RT at 09:59 tsoummers 10:00 AM Opsite applied tsoummers 10:00 AM Patient out of room: 10:00 tsoummers 10:00 AM Report given to SCOTT LAM Pt taken to Holding room Room #2. 10:00 tsoummers 11:39 AM Patient continues to refuse food tray. Drink provided. [email or web address] 12:40 PM Activity: 2 Circulation: 2 Consciousness: 2 O2 Saturation: 2 Respiration: 2 [email or web address] 12:40 PM Patient ambulated with assistance. Insertion site without bleeding or hematoma. Pulses unchanged. [email or web address] 12:40 PM Report called to Cheri LAM for 2NE33. [email or web address] 01:00 PM Pt taken to 2NE33. [email or web address] Complications Complication None Hemodynamics Pressures Site Systolic/A Wave Diastolic/V Wave Mean LV 81 -8 5 LV 92 5 6 AO 78 40 57 AO 80 39 56 AO 87 48 65 AO 87 47 63 AO 95 56 76 AO 126 75 98 Post Procedure Information Blood Pressure: 137/89 mmHg Rhythm: NSR Post procedural instructions were given Closure Device Time Device Success/Fail 05/28/2017 9:45:00 AM MynxGrip Successful Site Checks Time Location Status Staff Sheath In? Note 09:47 AM Rt Groin Oozing June Bourgeois RT 09:59 AM Rt Groin No bleeding/hematoma June Bourgeois RT 10:09 AM Rt Groin No bleeding/ No Hematoma Sudhir Jean RN 10:15 AM Rt Groin No bleeding/ No Hematoma Gary Mcadams RN 10:33 AM Rt Groin No bleeding/ No Hematoma Gary Mcadams RN 10:45 AM Rt Groin No bleeding/ No Hematoma Gary Mcadams RN 11:00 AM Rt Groin No bleeding/ No Hematoma Gary Mcadams RN 11:30 AM Rt Groin No bleeding/ No Hematoma Sudhir Jean RN 12:00 PM Rt Groin No bleeding/ No Hematoma Gary Mcadams RN Pulses Time Site Pre-Procedure Post-Procedure Note 05/28/2017 8:29:00 AM Bilateral DP & PT 1+ 05/28/2017 8:29:00 AM Bilateral radial 2+ 05/28/2017 10:09:00 AM Bilateral DP & PT 1+ 05/28/2017 10:15:00 AM Bilateral DP & PT 1+ 05/28/2017 10:33:00 AM Bilateral DP & PT 1+ 05/28/2017 10:45:00 AM Bilateral DP & PT 1+ 05/28/2017 11:00:00 AM Bilateral DP & PT 1+ 05/28/2017 11:30:00 AM Bilateral DP & PT 1+ 05/28/2017 12:00:00 PM Bilateral DP & PT 1+ Updated by Gary Mcadams RN on 05/28/2017 1:16:29 PM electronically signed on 05/28/2017 1:18:12 PM with status of Final
--- NOTE | 2017-05-28 16:22 | Electrocardiograph Report ---
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
--- NOTE | 2017-05-28 16:30 | Event Note ---
Date of Encounter: 05/28/17 Time of Encounter: 14:05 Patient is a 56y/o male admitted for NSTEMI Pt seen and examined. underwent LHC earlier this morning, found to have severe one vessel disease, s/ p successful PTCA/VICTORINO placement in proximal RCA, Mid RCA, and distal RCA started on DAPT continue BB, statin labs and vitals reviewed currently asymptomatic
--- NOTE | 2017-05-28 16:30 | Electrocardiograph Report ---
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
--- NOTE | 2017-05-28 16:31 | Electrocardiograph Report ---
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
--- NOTE | 2017-05-28 16:32 | Electrocardiograph Report ---
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
[2017-05-28] MEDS: *HR* Heparin 5,000 UNIT/ML VIAL SQ SCH (17:30)
[2017-05-29] MEDS: Nitroglycerin 25 MG/250 ML INFUS..BTL IVC SCH (00:53)
[2017-05-29] MEDS ORDERED: 0.9 % Sodium Chloride 500 ML ONE (00:59)
[2017-05-29] MEDS ORDERED: 0.9 % Sodium Chloride 500 ML IVC ONE (01:00)
[2017-05-29] MEDS: 0.9 % Sodium Chloride 1,000 ML IVC SCH ×3 (01:00→12:03)
[2017-05-29 05:40] LABS: Basophils % 0.2 %; Eosinophils % 0.2 %; Hematocrit 37.1 % (37.5-50.1); Immature Granulocytes % 0.4 % (0-4); Lymphocytes # 1.8 K/mcL (0.6-4.6); Mean Corpuscular HGB Conc 32.6 g/dL (31.6-35.5); Mean Corpuscular Volume 91.8 fL (83.0-100.0); Mean Platelet Volume 9.9 fL (9.4-12.4); Neutrophils # 7.5 K/mcL (1.6-8.9); Platelet Count 151 K/mcL (140-400); Red Blood Count 4.04 M/mcL (4.19-5.50); Segmented Neutrophils % 72.2 %
[2017-05-29 05:41] LABS: Hemoglobin 12.1 g/dL (12.9-16.9)
[2017-05-29 05:50] LABS: BUN/Creatinine Ratio 12 (6-26); Blood Urea Nitrogen 10 mg/dL (6-20); Calcium 7.9 mg/dL (8.6-10.3); Carbon Dioxide 27 mEq/L (23-29); Chloride 111 mEq/L (98-107); Glucose 114 mg/dL (70-105); Magnesium 2.4 mg/dL (1.6-2.6); Osmolality,Calculated 290 (280-300); Phosphorous 2.4 mg/dL (2.7-4.5); Potassium 3.9 mEq/L (3.5-5.1); Sodium 140 mEq/L (136-145); eGFR For African Americans > 60 (> 60); eGFR For Non-African Americans > 60 (> 60)
[2017-05-29] MEDS: *HR* Heparin 5,000 UNIT/ML VIAL SQ SCH (06:33)
[2017-05-29] MEDS: Pantoprazole 40 MG VIAL IVP SCH (06:33)
[2017-05-29] MEDS: Nicotine 21 MG PATCH.TD24 TD SCH (09:19)
[2017-05-29] MEDS: Aspirin Enteric Coated 81 MG Tablet PO SCH (09:19)
--- NOTE | 2017-05-29 10:19 | Cardiology Progress Note ---
Date of Encounter: 05/29/17 Time of Encounter: 09:45 Assessment and Plan (1) NSTEMI (non-ST elevated myocardial infarction) Current Visit: Yes Status: Acute Late presenting AMI--symptoms since Friday evening. Peak troponin thus far 16.35. Inferior ST/T wave changes on ECG. C showed severe single vessel CAD. S?P VICTORINO x4 to the RCA. Continue plavix, asa, and statin. Hold bb due to persistent bradycardia. As of note he did not receive carvedilol , held by nursing staff for bradycardia. Telemetry review shows avg HR 50. Importance of DAPT with asa and plavix uninterrupted for minimum of one year discussed and he voiced understanding. No recurrent chest pain. Kidney function remains normal. Noted to have drop in Hgb from 15.5 to 12.1 and hypotension. No signs of bleeding. Right femoral access site without hematoma. Denies back pain. Re-eval HGB in 4 hurs. Phase on cardiac rehab consult. (2) Hypotension Current Visit: Yes Status: Acute Hypotension through the night requiring fluid bolus. Hold antihypertensive medications. Check Hgb at noon. Qualifiers: Hypotension type: other hypotension type Qualified Code(s): I95.89 - Other hypotension (3) Sinus bradycardia Current Visit: Yes Status: Acute Telemetry review shows avg HR 50 bpm. Min HR 38 during nocturnal hours. HR in the mid 40's during daytime hours noted. No pauses. Occasional junctional rhythm. Likely due to CAD. Will continue to monitor for improvement. Check EKG this morning. He is asymptomatic currently. No betablocker. Discussion w patient/family: The assessment and plan as outlined above was discussed with the patient and/or family members who expressed understanding and agreement. All questions were answered. Thank you for involving us in the care of your patient. Please call with any questions. Subjective Principal diagnosis: NSTEMI, bradycardia Interval history: Mr. Cloud denies symptoms overnight. He was documented to have hypotension and bradycardia and received IV fluid boluses. Objective Vital Signs, Last 4 Hours Temp Pulse Resp BP Pulse Ox 05/29/17 07:17 97.9 F 50 16 107/79 98 General: Conversant, No Apparent Distress HEENT: Atraumatic, Normocephaly, Mucus Membranes Moist Neck: No JVD, Normal carotid pulses Cardiac: Reg Rate and Rhythm, Normal S1 and S2, No Murmur Lungs: Normal Breath Sounds, No Wheeze, Rales, Rhonchi Neuro: Alert and responsive, No focal deficits noted Abdomen: Soft, Non-Tender Skin: No rashes noted on visualized skin Musculoskeletal: No Chest Wall Tenderness Extremities: No Clubbing, No Cyanosis, No Edema, Normal Pulses, Other (right femoral access site without hematoma. ) Results 05/29/17 05:03 05/29/17 05:03 Lab Results 05/29/17 05/29/17 05:03 05:03 WBC 10.4 Hgb 12.1 L D Hct 37.1 L Plt Count 151 Sodium 140 Potassium 3.9 Chloride 111 H Carbon Dioxide 27 BUN 10 Creatinine 0.86 Glucose 114 H Calcium 7.9 L Magnesium 2.4 - Imaging and Cardiology Echo: pending Cardiac cath: report reviewed - EKG Interpretation EKG results cardiology: personally reviewed Consult Discharge Plan - Plan Referrals: Trang Osborne CNP [Family Provider] - Gabriella Carrero DO [Primary Care Provider] -
[2017-05-29 11:35] VITALS: BP 110/83
[2017-05-29 13:21] LABS: Hematocrit 39.3 % (37.5-50.1); Hemoglobin 12.6 g/dL (12.9-16.9)
--- NOTE | 2017-05-29 14:06 | Event Note ---
Date of Encounter: 05/29/17 Time of Encounter: 14:01 - Cardiology Event Note Hg recheck shows stable HGB at 12.6. Will continue to monitor. No signs of bleeding. B/p improved. Hold. bb and aceinhibitoe for low blood pressure. TTE completed and shows improved EF at 55%. Normal LV chamber size, wall thickness and overall function. Mild segmental left ventricular systolic dysfunction. Mild left ventricular diastolic dysfunction. Normal right ventricular structure and function. Mild tricuspid regurgitation. Moderate pulmonary hypertension. Estimated RVSP is 49 mmHg. Telemetry shows AVg HR 50. HR in the upper 40's at times (lowest 47 during waking hours). HR 60 currently . No beta-kevin. He is asymptomatic. Recommend 24 hour holter monitor at discharge to assess for symptomatic bradycardia. Above reviewed with Dr. Tolentino who agrees with above. Patient does have STANISLAV on c-pap at home. Patient did not wear c-pap during hospital stay. He will continue at home.
--- NOTE | 2017-05-29 15:13 | Discharge Summary ---
Date of Encounter: 05/29/17 Time of Encounter: 15:11 - Discharge Diagnosis (1) NSTEMI (non-ST elevated myocardial infarction) Priority: Primary Status: Acute (2) Hypotension Priority: Secondary Status: Resolved Qualifiers: Hypotension type: other hypotension type Qualified Code(s): I95.89 - Other hypotension (3) Sinus bradycardia Priority: Primary Status: Acute (4) Tobacco abuse Priority: Secondary Status: Chronic - Discharge Medications Prescriptions: Atorvastatin [Lipitor] 80 mg PO DAILY #30 tablet Clopidogrel [Plavix] 75 mg PO DAILY #30 tablet Home Medications: Aspirin Enteric Coated [Aspirin EC] 81 mg PO DAILY 05/28/17 [History] Cyanocobalamin (Vitamin B-12) [Vitamin B12] 1,000 mcg PO DAILY 05/28/17 [History ] Atorvastatin [Lipitor] 80 mg PO DAILY #30 tablet 05/29/17 [Rx] Clopidogrel [Plavix] 75 mg PO DAILY #30 tablet 05/29/17 [Rx] Allergies/Adverse Reactions: 3 Allergy/AdvReac Type Severity Reaction Status Date / Time No Known Allergies Allergy Verified 05/27/17 23:34 Procedures/tests Complete & Pending: Procedures Performed prior 72 hours Category Date Time Status CL Cardiac Catheterization [CL] Routine 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 05/28/17 08:22 Completed ECG 24 holter monitor setup [ECG] Routine Y 05/29/17 14:06 Ordered EKG [ECG 12 lead ECG] [ECG] Stat Y 05/28/17 06:54 Completed EKG [ECG 12 lead ECG] [ECG] Stat Y 05/29/17 10:16 Ordered EV echocardiogram Routine Y 05/28/17 08:36 Completed Date of admission: 05/28/17 02:41 Primary care physician: Gabriella Carrero DO Consults: 05/28/17 08:23 Consult to Cardiac Rehabilitation-Phase1 [CONS] Routine Comment: Reason for Consult: NSTEMI Call Completed: No Discharging clinician: Laurel Connelly Anticipated date of discharge: 05/29/17 - Patient Status Disposition: Home, Self-Care Condition: Good Functional capacity at discharge: independent ambulation Overall status at discharge: patient is back to baseline - Discharge Instructions Follow Up With: Jarrett Shepherd DO [Resident] - 06/02/17 3:20 pm Additional Instructions: Please follow up with 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 Please continue to wear the holter monitor as prescribed. Please continue Aspirin, Plavix, Lipitor in addition to all your other home medications. Please keep a daily log of your blood pressure at home and take this log with you to your PCP's appointment. Seek medical help immediately if chest pain occurs. - Diet and Activity Activity: increase activity as tolerated Diet: low fat, low cholesterol, low salt diet Hospital course: Mr. Cloud is a 56 year old male with PMH of CAD, COPD, tobacco abuse admitted for NSTEMI. He was followed by cardiology, underwent LHC. He was had a successfull PTCA/VICTORINO x 4. He was started on ASA, Plavix, Statin, Edinson-inh, and BB. He was noted to be bradycardic and hypotensive due to which Edinson-inh and BB were discontinued. He remained asymptomatic and denied any chest pain. Cardiology recommended 24hour holter monitoring upon discharge and outpatient follow up. At this time, pt is medically stable for discharge. He will follow up with PCP and cardiology after discharge. - Time Spent with Patient Total time spent providing and/or coordinating discharge services: Less than 30 minutes - Constitutional Vitals: Temp Pulse Resp BP Pulse Ox 98.2 F 44 15 110/83 98 05/29/17 11:32 05/29/17 11:32 05/29/17 11:32 05/29/17 11:32 05/29/17 11:32 General appearance: Present: A&O X 3, no acute distress, obese - Head Head exam: Present: atraumatic, normocephalic - Eye Eye exam: Present: conjuntiva pink, sclera anicteric - Respiratory Respiratory exam: Present: CTAB. Absent: respiratory distress, wheezes - Cardiovascular Cardiovascular exam: Present: bradycardia (sinus bradycardia), +S1, +S2 - GI/Abdominal GI/Abdominal exam: Present: normal bowel sounds, soft, no peritoneal signs. Absent: distended, tenderness - Extremities Exam Extremities exam: Present: warm, radial pulses palpable and symmetrical. Absent : calf tenderness, cyanotic, pedal edema - Neurological Exam Neurological exam: Present: alert, oriented X3
--- NOTE | 2017-05-30 19:20 | Electrocardiograph Report ---
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
== END 2017-05-29 16:23 | disposition home or self-care (01) | DRG 174 ==
LOC: EMEROO 23:29 → 2NENU 05-28 02:41
PROVIDERS: ADMIT Internal Medicine; ATTEND Internal Medicine